=== PATIENT | female | born 1995 | race Caucasian/White ===

== ENCOUNTER 2018-07-21 00:23 | Emergency (ER) | payer OTHER ==
[2018-07-21 00:45] LABS: PLATELET COUNT 281 10^3/uL (150-400)
--- NOTE | 2018-07-21 00:55 | EDPHY ---
H & P Stated Complaint: syncope Time Seen by Provider: 07/21/18 00:35 HPI/ROS: HPI The patient presents with syncope which occurred just prior to arrival, she is brought in by ambulance. The patient is healthy and was feeling well earlier in the day though may have been somewhat dehydrated she thinks. She was walking in the hallway of her house when she felt dizzy, had tunnel vision, lost her hearing, and then had an episode of loss of consciousness. She fell backwards hitting her head on a cabinet. She does not have any head injury or headache. She did not have any preceding chest pain, shortness of breath, palpitations. She has 1 prior history of fainting as a child. She now feels well.. REVIEW OF SYSTEMS 10 systems were reviewed and negative with the exception of the elements mentioned in the history of present illness. PMHx: Healthy Soc Hx: Here with her family PHYSICAL General Appearance: Alert, no distress Eyes: Pupils equal and round no pallor or injection ENT, Mouth: Mucous membranes moist Respiratory: There are no retractions, lungs are clear to auscultation Cardiovascular: Regular rate and rhythm Gastrointestinal: Abdomen is soft and non-tender, no masses, bowel sounds normal Neurological: A&O, moves all extremities Skin: Warm and dry, no rashes Musculoskeletal: Neck is supple non tender Extremities: symmetrical, full range of motion Psychiatric: Patient is oriented X 3, there is no agitation Source: Patient, Family, EMS Exam Limitations: No limitations - Personal History LMP (Females 10-55): 22-28 Days Ago Current Tetanus/Diphtheria Vaccine: Yes Current Tetanus Diphtheria and Acellular Pertussis (TDAP): Yes - Medical/Surgical History Hx Asthma: No Hx Chronic Respiratory Disease: No Hx Diabetes: No Hx Cardiac Disease: No Hx Renal Disease: No Hx Cirrhosis: No Hx Alcoholism: No Hx HIV/AIDS: No Hx Splenectomy or Spleen Trauma: No Other PMH: ADHD. ANXIETY - Social History Smoking Status: Current every day smoker Constitutional: Initial Vital Signs Temperature (C) 36.6 C 07/21/18 00:27 Heart Rate 86 07/21/18 00:27 Respiratory Rate 16 07/21/18 00:27 Blood Pressure 123/85 H 07/21/18 00:27 O2 Sat (%) 96 07/21/18 00:27 O2 Delivery Mode Room Air Allergies/Adverse Reactions: No Known Allergies Allergy (Unverified 07/21/18 00:30) Home Medications: Medication Instructions Recorded Adderall 20 mg (*) 07/21/18 Medical Decision Making - Diagnostics EKG Interpretation: EKG: Complete interpretation has been separately recorded in the [facility] archive. Summary impression: Normal sinus rhythm Differential Diagnosis: 23-year-old healthy female presents with an episode of ALOC, brought in by ambulance. On exam, well-appearing, normal vital signs. EKG is normal without any arrhythmia. Labs reveal hCG is negative. Differential diagnosis includes arrhythmia, ectopic , less likely PE given no shortness of breath or chest pain. Patient was given a L fluid with improvement in her symptoms. She is able to walk around the emergency department on any ongoing symptoms. She will be discharged home with her family. - Data Points Laboratory Results: Laboratory Results 07/21/18 00:30 07/21/18 00:30 07/21/18 07/21/18 07/21/18 00:30 00:30 00:30 WBC 11.33 10^3/uL H 10^3/uL (3.80-9.50) RBC 4.61 10^6/uL 10^6/uL (4.18-5.33) Hgb 13.3 g/dL g/dL (12.6-16.3) Hct 38.7 % % (38.0-47.0) MCV 83.9 fL fL (81.5-99.8) MCH 28.9 pg pg (27.9-34.1) MCHC 34.4 g/dL g/dL (32.4-36.7) RDW 12.7 % % (11.5-15.2) Plt Count 281 10^3/uL 10^3/uL (150-400) MPV 10.1 fL fL (8.7-11.7) Neut % (Auto) 49.8 % % (39.3-74.2) Lymph % (Auto) 41.7 % % (15.0-45.0) [place] % (Auto) 6.4 % % (4.5-13.0) Eos % (Auto) 1.4 % % (0.6-7.6) Baso % (Auto) 0.4 % % (0.3-1.7) Nucleat RBC Rel Count 0.0 % % (0.0-0.2) Absolute Neuts (auto) 5.63 10^3/uL 10^3/uL (1.70-6.50) Absolute Lymphs (auto) 4.73 10^3/uL H 10^3/uL (1.00-3.00) Absolute Monos (auto) 0.73 10^3/uL 10^3/uL (0.30-0.80) Absolute Eos (auto) 0.16 10^3/uL 10^3/uL (0.03-0.40) Absolute Basos (auto) 0.05 10^3/uL 10^3/uL (0.02-0.10) Absolute Nucleated RBC 0.00 10^3/uL 10^3/uL (0-0.01) Immature Gran % 0.3 % % (0.0-1.1) Immature Gran # 0.03 10^3/uL 10^3/uL (0.00-0.10) Sodium 141 mEq/L mEq/L (135-145) Potassium 4.0 mEq/L mEq/L (3.3-5.0) Chloride 107 mEq/L mEq/L (97-110) Carbon Dioxide 25 mEq/l mEq/l (22-31) Anion Gap 9 mEq/L mEq/L (8-16) BUN 15 mg/dL mg/dL (7-23) Creatinine 1.1 mg/dL H mg/dL (0.6-1.0) Estimated GFR > 60 Glucose 118 mg/dL H mg/dL (70-100) Calcium 9.4 mg/dL mg/dL (8.5-10.4) Beta HCG, Qual NEGATIVE Departure - Departure Disposition: Home, Routine, Self-Care Clinical Impression: Syncope Qualifiers: Syncope type: vasovagal syncope Qualified Code(s): R55 - Syncope and collapse Condition: Good Instructions: Syncope (ED) Additional Instructions: Please make sure to drink plenty of fluids. Return to the emergency department if your worse in any way. Referrals: Leela Poole MD [place] [place] - As per Instructions
[2018-07-21 00:59] VITALS: BP 114/55
--- NOTE | 2018-07-21 05:02 | CPEKG ---
Test Reason : OPEN Blood Pressure : / mmHG Vent. Rate : 080 BPM Atrial Rate : 080 BPM P-R Int : 140 ms QRS Dur : 083 ms QT Int : 378 ms P-R-T Axes : 065 021 027 degrees QTc Int : 436 ms Sinus rhythm Confirmed by Jenna Arriaga ([id number]) on 07/21/2018 5:02:16 AM Referred By: Confirmed By:Jenna Arriaga
== END 2018-07-21 01:09 | disposition home or self-care (01) ==
LOC: EDUNIT#
DX: R55 Syncope and collapse (principal)